=== PATIENT | female | born 1995 | race Caucasian/White ===

== ENCOUNTER 2018-05-28 15:46 | Emergency (ER) | payer OTHER ==
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
[2018-05-28 15:57] VITALS: BP 118/78; PULSE 98; TEMP 97.9; BMI 23.3
[2018-05-28] MEDS ORDERED: ACETAMINOPHEN 500 MG TABLET (FP) PO ONE (16:24)
[2018-05-28] MEDS ORDERED: ACETAMINOPHEN 500 MG TABLET (FP) ONE (16:26)
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
== END 2018-05-28 16:44 | disposition home or self-care (01) ==
LOC: JERFT 15:46
PROC: 2W39X1Z Immobilization of Left Upper Extremity using Splint (ICD-10-PCS; principal; 2018-05-28)
DX: S59.802A Other specified injuries of left elbow, initial encounter (principal); V43.52XA Car driver injured in collision with other type car in traffic accident, initial encounter; Y92.414 Local residential or business street as the place of occurrence of the external cause; Y93.89 Activity, other specified; Y99.8 Other external cause status
CPT/HCPCS: 73070-TC-LT-FY; 99282-25

== ENCOUNTER 2018-06-03 09:27 | Emergency (ER) | payer OTHER ==
[2018-06-03 09:41] VITALS: BP 117/74; PULSE 85; TEMP 97.5; BMI 23.3
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
== END 2018-06-03 11:15 | disposition home or self-care (01) ==
LOC: JERFT 09:27
PROC: 2W3DX1Z Immobilization of Left Lower Arm using Splint (ICD-10-PCS; principal; 2018-06-03)
DX: S63.502D Unspecified sprain of left wrist, subsequent encounter (principal); V49.9XXD Car occupant (driver) (passenger) injured in unspecified traffic accident, subsequent encounter
CPT/HCPCS: 73110-TC-LT-FY; 99281-25

== ENCOUNTER 2018-10-18 20:27 | Emergency (ER) | payer OTHER ==
[2018-10-18 20:34] VITALS: TEMP 98.4; BMI 25.3
--- NOTE | 2018-10-18 20:57 | PDOC ---
History of Present Illness - General Chief Complaint: Vaginal Bleeding Stated Complaint: 7 WKS /VAGINAL BLEEDING/LOWER ABD/CRAMPS Time Seen by Provider: 10/18/18 20:50 - History of Present Illness Initial Comments: 10/18/18 21:49 HPI: 23 y/o F with history of seasonal asthma and depression 6-7weeks gestation presenting with 1 week of lower abdominal cramping and 1 day of vaginal bleeding. She reports that cramping has been intermittent over the past week but it wasnt that painful and improved over time; denies any radiation of pain or requiring meds for alleviation. Today however, she started having light bleeding present when wiping. She denies any clots or heavy flow. She denies fever, chills, dysuria, hematuria, chest pain, SOB, LH, PRIEST, pelvic pain. She report intermittent nausea since onset of . PMHx: as noted above ROS: as noted SHx: Denies tobacco use; no alcohol use; no rec drugs Allergies: NKDA ROS: GENERAL/CONSTITUTIONAL: No fever or chills. No weakness. HEAD, EYES, EARS, NOSE AND THROAT: No change in vision. No ear pain or discharge. No sore throat. CARDIOVASCULAR: No chest pain or shortness of breath RESPIRATORY: No cough, wheezing, or hemoptysis. GASTROINTESTINAL: No vomiting, diarrhea GENITOURINARY: No dysuria, frequency, or change in urination. MUSCULOSKELETAL: No joint or muscle swelling or pain. No neck or back pain. SKIN: No rash NEUROLOGIC: No headache, vertigo, loss of consciousness, or change in strength/ sensation. ENDOCRINE: No increased thirst. No abnormal weight change HEMATOLOGIC/LYMPHATIC: No anemia, easy bleeding, or history of blood clots. ALLERGIC/IMMUNOLOGIC: No hives or skin allergy. PE: GENERAL: Awake, alert, and fully oriented, no acute distress HEAD: No signs of trauma, normocephalic, atraumatic EYES: EOMI, sclera anicteric, conjunctiva clear ENT: Auricles normal inspection, hearing grossly normal, nares patent, oropharynx clear without exudates. Moist mucosa NECK: Normal ROM, no lymphadenopathy LUNGS: No increased work of breathing, symmetrical chest rise, clear to auscultation bilaterally, no wheezes, crackles or rhonchi HEART: tachycardic and regular rhythm, normal S1 and S2, no murmurs, peripheral pulses 2+ and equal bilaterally. ABDOMEN: Soft, nondistended, nontender, normoactive bowel sounds. No guarding, no rebound. No masses EXTREMITIES: Normal inspection, Normal range of motion, no edema. No clubbing or cyanosis. NEUROLOGICAL: Cranial nerves II through XII grossly intact. Normal speech, normal gait, no focal sensorimotor deficits SKIN: Warm, Dry, normal turgor, no rashes or lesions noted Past History - Past Medical History Allergies/Adverse Reactions: Allergies Allergy/AdvReac Type Severity Reaction Status Date / Time No Known Allergies Allergy Verified 10/18/18 20:31 Home Medications: Ambulatory Orders 95/Iron Fum/Folic/Dha [ + Dha Combo Pack] 1 each PO DAILY 10/18 Sertraline HCl [Zoloft] 25 mg PO DAILY 10/18/18 Asthma: Yes COPD: No Psychiatric Problems: Yes - Immunization History Immunization Up to Date: Yes - Suicide/Smoking/Psychosocial Hx Smoking History: Never smoked Hx Alcohol Use: No Drug/Substance Use Hx: No *Physical Exam - Vital Signs Last Vital Signs Temp Pulse Resp BP Pulse Ox 98.4 F 105 H 18 120/73 99 10/18/18 20:32 10/18/18 20:32 10/18/18 20:32 10/18/18 20:32 10/18/18 20:32 ED Treatment Course - LABORATORY CBC & Chemistry Diagram: 10/18/18 21:41 Medical Decision Making - Medical Decision Making 10/18/18 22:31 23 y/o F with history of seasonal asthma and depression 6-7weeks gestation presenting with 1 week of lower abdominal cramping and 1 day of vaginal bleeding. HR 105. PE unremarkable. Concern for threatened -cbc, ua, t&s, hcg quant -TVUS -discussed with patient pelvic exam is part of assessment for open vs closed os and to identify source of bleeding as well as to assess for tenderness, however patient refused at this time since she has one 1.5weeks ago and would like only TVUS at this time 10/19/18 00:09 TVUS with FHR and with IUP at 6w1d (lmp 7w3d) discussed with patient results and she is comfortable with instructions to followup with Obgyn as soon as possible. Reviewed return pcxns; comfortable with DC *DC/Admit/Observation/Transfer Diagnosis at time of Disposition: Vaginal bleeding during Abdominal pain Qualifiers: Abdominal location: lower abdomen, unspecified Qualified Code(s): R10.30 - Lower abdominal pain, unspecified - Discharge Dispostion Disposition: HOME Condition at time of disposition: Stable Decision to Admit order: No - Referrals Referrals: Kalia Daniels [Primary Care Provider] - - Patient Instructions Printed Discharge Instructions: DI for Vaginal Bleeding During Additional Instructions: Additional Instructions: Please return to the emergency department with any new or worsening symptoms or concerns including severe abdominal pain, vomiting, not being able to tolerate food, significant vaginal bleeding, fainting. Please follow up with your ObGyn within 48-72 hours Continue care and vitamins - Post Discharge Activity
--- NOTE | 2018-10-18 21:47 | PDOC ---
Attending Attestation - Resident Resident Name: Ana Villa - HPI HPI: 10/18/18 21:48 Pt presents to the ED complaining of vaginal spotting for one day. Bleeding is minimal--streaks with wiping only. Also complains of very mild abdominal pain. Denies fever, nausea and vomiting or vaginal discharge. Denies urinary complaints. - Physicial Exam PE: 10/18/18 21:54 Agree with resident exam. Patient is alert and oriented and in no acute distress. Abdomen soft, non tender, non distended without guarding or rebound. - Medical Decision Making 10/18/18 21:57 Pt presents to the ED complaining of vaginal spotting. Threatened AB vs ectopic vs missed AB. Will check labs including bhcg and type and screen and transvaginal US. Will reassess.
[2018-10-18 21:56] LABS: BASO % 0.6 % (0-2.0); EOS % 1.4 % (0-4.5); HEMATOCRIT 38.1 % (32.4-45.2); HEMOGLOBIN 13.3 GM/dL (10.7-15.3); LYMPH % 29.6 % (8-40); MCH 29.3 pg (25.7-33.7); MCHC 34.9 g/dl (32.0-36.0); MEAN CELL VOLUME 83.9 fl (80-96); MONO % 5.8 % (3.8-10.2); NEUT % 62.6 % (42.8-82.8); PLATELET COUNT 269 K/MM3 (134-434); RBC 4.54 M/mm3 (3.60-5.2); RDW 13.6 % (11.6-15.6)
[2018-10-18 22:17] LABS: EPI CELLS 2.5 /HPF (0-5/HPF); HYALINE CASTS 1 /lpf (0-8); URINE APPEARANCE CLEAR; URINE BACTERIA 28.3 /hpf (NEGATIVE); URINE BILIRUBIN NEGATIVE (NEGATIVE); URINE COLOR YELLOW; URINE GLUCOSE (UA) NEGATIVE (NEGATIVE); URINE KETONE NEGATIVE (NEGATIVE); URINE LEUK ESTERASE TRACE (NEGATIVE); URINE NITRITE NEGATIVE (NEGATIVE); URINE PROTEIN NEGATIVE (NEGATIVE); URINE RBC 2 /hpf (0-4); URINE UROBILINOGEN 0.2 mg/dL (0.2-1.0); URINE WBC 2 /hpf (0-5)
[2018-10-19 00:18] VITALS: BP 123/68; PULSE 86
== END 2018-10-19 00:18 | disposition home or self-care (01) ==
LOC: JER 20:27
DX: O26.891 Other specified pregnancy related conditions, first trimester (principal); O20.8 Other hemorrhage in early pregnancy; Z3A.01 Less than 8 weeks gestation of pregnancy; Z87.09 Personal history of other diseases of the respiratory system
CPT/HCPCS: 36415; 76817-TC; 81003; 84702; 85025; 86850; 86900; 86901; 99283-25

== ENCOUNTER 2018-11-16 09:45 | Emergency (ER) | payer OTHER ==
[2018-11-16 09:52] VITALS: BP 106/60; PULSE 90; TEMP 98; BMI 24.7
[2018-11-16] MEDS ORDERED: SODIUM CHLORIDE 1,000 ML IV STA (10:19)
[2018-11-16] MEDS ORDERED: METOCLOPRAMIDE HCL INJECTION 10 MG/2 ML VIAL IVPUSH ONE (10:19)
[2018-11-16] MEDS ORDERED: FAMOTIDINE 20 MG/50 ML IVPB 20 MG/50 ML MG IVPB ONE ×2 (10:19→10:30)
[2018-11-16] MEDS ORDERED: METOCLOPRAMIDE HCL INJECTION 10 MG/2 ML VIAL ONE (10:30)
--- NOTE | 2018-11-16 10:41 | PDOC ---
History of Present Illness - General History Source: Patient Exam Limitations: No Limitations - History of Present Illness Initial Comments: 11/16/18 10:23 23 yo F 9 weeks comes in with significant other comes in c/o epigastric and suprapubic abdominal pain for the past week. She also c/o intractable vomiting and nausea, she has not been able to keep anything down, solids or liquids. She has told her OB who prescribed her reglan but it was not helping so she stopped taking it last week. Also c/o intermittent diffuse pounding headache, which started again last night at around 7pm. It started as a mild headache and progressively got worse. It is now a 7/10. No vaginal bleeding. No burning/pain on urination, no frequency/urgency on urination. Pt has had a documented IUP in this , has a OB, but has not been able to take her prenatals recently because she cant keep anything down [id number] LMP August 27. 11/16/18 10:46 11/16/18 10:54 <Hazel Koo - Last Filed: 11/16/18 11:33> <Himanshu Martinez - Last Filed: 11/17/18 11:54> - General Chief Complaint: ,Possible Stated Complaint: 9WKS/ ABD. PAIN Time Seen by Provider: 11/16/18 10:00 Past History - Past Medical History Asthma: Yes COPD: No Psychiatric Problems: Yes - Immunization History Immunization Up to Date: Yes - Psycho Social/Smoking Cessation Hx Smoking History: Never smoked Have you smoked in the past 12 months: No Information on smoking cessation initiated: No Hx Alcohol Use: No Drug/Substance Use Hx: No <Hazel Koo - Last Filed: 11/16/18 11:33> <Himanshu Martinez - Last Filed: 11/17/18 11:54> - Past Medical History Allergies/Adverse Reactions: Allergies Allergy/AdvReac Type Severity Reaction Status Date / Time No Known Allergies Allergy Verified 10/18/18 20:31 Home Medications: Ambulatory Orders 95/Iron Fum/Folic/Dha [ + Dha Combo Pack] 1 each PO DAILY 10/18 Sertraline HCl [Zoloft] 25 mg PO DAILY 10/18/18 Famotidine [Pepcid] 20 mg PO DAILY 10 Days #10 tablet 11/16/18 Review of Systems - Review of Systems Able to Perform ROS?: Yes Constitutional: No: Chills, Fever, Malaise, Night Sweats HEENTM: No: Eye Pain, Recent change in vision, Throat Pain Respiratory: No: Cough, Shortness of Breath Cardiac (ROS): No: Chest Pain, Palpitations, Chest Tightness ABD/GI: Yes: Nausea, Vomiting, Abdominal cramping. No: Diarrhea : No: Dysuria, Hematuria Musculoskeletal: No: Back Pain Integumentary: No: Rash Neurological: Yes: Headache. No: Numbness, Dizziness Psychiatric: No: Change in Appetite Endocrine: No: Unexplained Weight Loss <Hazel Koo - Last Filed: 11/16/18 11:33> *Physical Exam - Vital Signs Last Vital Signs Temp Pulse Resp BP Pulse Ox 98.0 F 90 18 106/60 100 11/16/18 09:49 11/16/18 09:49 11/16/18 09:49 11/16/18 09:49 11/16/18 09:49 - Physical Exam General Appearance: Yes: Nourished. No: Apparent Distress HEENT: positive: PAPA, Normal ENT Inspection, Normal Voice, Other (dry mucous membranes). negative: Pale Conjunctivae, Scleral Icterus (R), Scleral Icterus ( L) Neck: positive: Supple. negative: Decreased range of motion, Tender midline Respiratory/Chest: positive: Lungs Clear, Normal Breath Sounds. negative: Respiratory Distress, Accessory Muscle Use Cardiovascular: positive: Regular Rhythm, Regular Rate Gastrointestinal/Abdominal: positive: Normal Bowel Sounds, Tender (minimal epigastric and suprapubic tenderness), Soft. negative: Guarding, Rebound Musculoskeletal: positive: Normal Inspection. negative: CVA Tenderness, Decreased Range of Motion Extremity: positive: Normal Capillary Refill, Normal Inspection, Normal Range of Motion. negative: Tender, Pedal Edema Integumentary: positive: Normal Color, Dry. negative: Jaundice, Rash Neurologic: positive: Fully Oriented, Alert, Normal Mood/Affect <Hazel Koo - Last Filed: 11/16/18 11:33> - Vital Signs Last Vital Signs Temp Pulse Resp BP Pulse Ox 98.0 F 90 18 106/60 100 11/16/18 09:49 11/16/18 09:49 11/16/18 09:49 11/16/18 09:49 11/16/18 09:49 <Himanshu Martinez - Last Filed: 11/17/18 11:54> ED Treatment Course - LABORATORY CBC & Chemistry Diagram: 11/16/18 10:28 11/16/18 10:28 - RADIOLOGY Radiology Studies Ordered: Category Date Time Status TRANSVAGINAL US PREG [US] Stat Ultrasound 11/16/18 10:10 Ordered <Hazel Koo - Last Filed: 11/16/18 11:33> - LABORATORY CBC & Chemistry Diagram: 11/16/18 10:28 11/16/18 10:28 - ADDITIONAL ORDERS Additional order review: 11/16/18 10:28 Urine Culture - Final Urine - Urine Clean Catch NO GROWTH OBTAINED 11/16/18 10:28 RBC 4.61 MCV 84.9 MCHC 34.8 RDW 13.6 MPV 7.5 Neutrophils % 73.7 Lymphocytes % 20.1 D Monocytes % 5.2 Eosinophils % 0.7 Basophils % 0.3 - Medications Given in the ED: ED Medications Discontinued Medications Generic Name Dose Route Start Last Admin Trade Name Deltaq PRN Reason Stop Dose Admin Diphenhydramine HCl 25 mg 11/16/18 10:19 11/16/18 10:54 Benadryl Injection - IVPUSH 11/16/18 10:20 25 mg ONCE ONE Administration Famotidine/Sodium Chloride 20 mg in 50 mls @ 100 mls/hr 11/16/18 10:19 10:54 Pepcid 20 Mg Premixed Ivpb - IVPB 11/16/18 10:48 100 mls/hr ONCE ONE Administration Sodium Chloride 1,000 mls @ 1,000 mls/hr 11/16/18 10:19 11/16/18 10:54 Normal Saline - IV 11/16/18 11:18 1,000 mls/hr ASDIR STA Administration Metoclopramide HCl 10 mg 11/16/18 10:19 11/16/18 10:55 Reglan Injection - IVPUSH 11/16/18 10:20 10 mg ONCE ONE Administration <Himanshu Martinez - Last Filed: 11/17/18 11:54> Medical Decision Making - Medical Decision Making 11/16/18 10:56 23 yo F w/ vomiting in early . Also w/ mild abdominal pain, headache. Likely dehydration. No vaginal bleeding. Will line and lab, give pepcid, reglan, benadryl, IV fluids. WIll do a TVS. 11/16/18 11:33 Pt feels a lot better UA reviewed. 2 WBCs, will wait for urine culture. Pt is asking to get discharged, she says that she feels a lot better, no nausea , no abdominal pain. She refuses PO challenge, says that she just wants to go home, she will follow up with her OB. She says that reglan conley snot work for her. I told her t make sure she follows up with her OB return for worsening/concerning symptoms <Hazel Koo - Last Filed: 11/16/18 11:33> - Medical Decision Making The patient was seen and evaluated in conjunction with GELACIO Koo under my direct supervision, ancillary studies were reviewed. I independently interviewed and evaluated the patient and I agree with the plan as outlined by GELACIO Koo <Himanshu Martinez - Last Filed: 11/17/18 11:54> Discharge - Discharge Information Problems reviewed: Yes <Hazel Koo - Last Filed: 11/16/18 11:33> <Himanshu Martinez - Last Filed: 11/17/18 11:54> - Discharge Information Clinical Impression/Diagnosis: Vomiting , Vaginal bleeding during Abdominal pain Qualifiers: Abdominal location: unspecified location Qualified Code(s): R10.9 - Unspecified abdominal pain Condition: Stable Disposition: HOME - Additional Discharge Information Prescriptions: Famotidine [Pepcid] 20 mg PO DAILY 10 Days #10 tablet - Follow up/Referral Referrals: Marika Ding MD [Primary Care Provider] - - Patient Discharge Instructions Patient Printed Discharge Instructions: DI for Hyperemesis Gravidarum Additional Instructions: Please make a follow up appointment with your OB. Please make sure to drink lots of fluids, hydrate slowly. Return for worsening/concerning symptoms
[2018-11-16 10:51] LABS: BASO % 0.3 % (0-2.0); EOS % 0.7 % (0-4.5); HEMATOCRIT 39.2 % (32.4-45.2); HEMOGLOBIN 13.6 GM/dL (10.7-15.3); LYMPH % 20.1 % (8-40); MCH 29.5 pg (25.7-33.7); MCHC 34.8 g/dl (32.0-36.0); MEAN CELL VOLUME 84.9 fl (80-96); MEAN PLT VOLUME 7.5 fl (7.5-11.1); MONO % 5.2 % (3.8-10.2); NEUT % 73.7 % (42.8-82.8); PLATELET COUNT 271 K/MM3 (134-434); RBC 4.61 M/mm3 (3.60-5.2); RDW 13.6 % (11.6-15.6); WHITE BLOOD COUNT 10.3 K/mm3 (4.0-10.0)
[2018-11-16 10:54] LABS: EPI CELLS 3.2 /HPF (0-5/HPF); HYALINE CASTS 4 /lpf (0-8); URINE APPEARANCE CLEAR; URINE BACTERIA 12.2 /hpf (NEGATIVE); URINE BILIRUBIN NEGATIVE (NEGATIVE); URINE COLOR YELLOW; URINE GLUCOSE (UA) NEGATIVE (NEGATIVE); URINE KETONE NEGATIVE (NEGATIVE); URINE LEUK ESTERASE TRACE (NEGATIVE); URINE NITRITE NEGATIVE (NEGATIVE); URINE PROTEIN NEGATIVE (NEGATIVE); URINE RBC 3 /hpf (0-4); URINE WBC 2 /hpf (0-5)
[2018-11-16 11:08] LABS: ALBUMIN 3.7 g/dl (3.4-5.0); BILIRUBIN,TOTAL 0.5 mg/dL (0.2-1); BLOOD UREA NITROGEN 7.1 mg/dL (7-18); CALCIUM 9.5 mg/dL (8.5-10.1); CREATININE 0.5 mg/dL (0.55-1.3); PHOSPHOROUS 3.3 mg/dL (2.5-4.9); POTASSIUM 3.9 mmol/L (3.5-5.1); TOT PROT 7.9 g/dl (6.4-8.2)
== END 2018-11-16 12:19 | disposition home or self-care (01) ==
LOC: JER 09:45
PROC: 3E033GC Introduction of Other Therapeutic Substance into Peripheral Vein, Percutaneous Approach (ICD-10-PCS; principal; 2018-11-16)
PROC: 3E033GC Introduction of Other Therapeutic Substance into Peripheral Vein, Percutaneous Approach (ICD-10-PCS; 2018-11-16)
PROC: 3E033GC Introduction of Other Therapeutic Substance into Peripheral Vein, Percutaneous Approach (ICD-10-PCS; 2018-11-16)
DX: O26.891 Other specified pregnancy related conditions, first trimester (principal); O21.0 Mild hyperemesis gravidarum; Z3A.09 9 weeks gestation of pregnancy; Z87.09 Personal history of other diseases of the respiratory system; Z86.59 Personal history of other mental and behavioral disorders
CPT/HCPCS: 36415; 76810-TC; 80053; 81003; 83690; 83735; 84100; 84702; 85025; 87086; 96365; 96375; 99283-25; J7030

== ENCOUNTER 2019-05-12 02:30 | Inpatient (IN) | payer OTHER ==
[2019-05-12 03:20] VITALS: BMI 27.1
[2019-05-12 03:21] LABS: BASO % 0.6 % (0-2.0); EOS % 0.8 % (0-4.5); HEMATOCRIT 29.5 % (32.4-45.2); HEMOGLOBIN 9.3 GM/dL (10.7-15.3); LYMPH % 27.7 % (8-40); MCH 21.4 pg (25.7-33.7); MCHC 31.4 g/dl (32.0-36.0); MEAN CELL VOLUME 68.2 fl (80-96); MEAN PLT VOLUME 9.2 fl (7.5-11.1); MONO % 5.8 % (3.8-10.2); NEUT % 65.1 % (42.8-82.8); PLATELET COUNT 248 K/MM3 (134-434); RBC 4.32 M/mm3 (3.60-5.2); RDW 18.2 % (11.6-15.6); WHITE BLOOD COUNT 12.2 K/mm3 (4.0-10.0)
[2019-05-12 03:29] LABS: INR 0.88 (0.83-1.09); PROTHROMBIN TIME (PATIENT) 10.4 SEC (9.7-13.0)
[2019-05-12 03:42] LABS: BLOOD UREA NITROGEN 6.6 mg/dL (7-18); CALCIUM 8.1 mg/dL (8.5-10.1); CREATININE 0.5 mg/dL (0.55-1.3); POTASSIUM 3.7 mmol/L (3.5-5.1)
[2019-05-12] MEDS ORDERED: AMPICILLIN SODIUM 2 GM VIAL ONE (03:53)
[2019-05-12] MEDS ORDERED: AMPICILLIN - 2 GM in SODIUM CHLORIDE 100 ML IVPB ONE (04:21)
[2019-05-12] MEDS ORDERED: CITRIC ACID/SODIUM CITRATE 30 ML UNIT-DOSE CUP PO ONE ×2 (04:22→04:23)
[2019-05-12] MEDS ORDERED: OXYTOCIN 20 UNITS in 0.9% NS 20 UNIT/1,000 ML INFUS.BAG IV ONE (04:28)
[2019-05-12 04:34] LABS: HIV INTERPRETATION NEGATIVE (NEGATIVE)
[2019-05-12] MEDS ORDERED: METHYLERGONOVINE MALEATE 0.2 MG/1 ML AMP IM PRN (05:47)
[2019-05-12] MEDS ORDERED: ACETAMINOPHEN 1000 MG/100 ML VIAL (NON FORMULARY) IVPB PRN (05:54)
[2019-05-12] MEDS ORDERED: OXYTOCIN 20 UNITS in 0.9% NS 1000 ML INFUS.BAG IV ONE (05:55)
[2019-05-12] MEDS ORDERED: ELECTROLYTE-148 SOLN 1,000 ML IV SCH (06:00)
[2019-05-12] MEDS ORDERED: OXYTOCIN 20 UNITS in 0.9% NS 20 UNIT/1,000 ML INFUS.BAG IV SCH (06:00)
[2019-05-12 08:33] LABS: POC NITRAZINE POS
[2019-05-12] MEDS ORDERED: IBUPROFEN 800 MG/8 ML IJ IVPB ONE (09:01)
[2019-05-12] MEDS ORDERED: IBUPROFEN 800 MG/8 ML IJ IVPB PRN (09:22)
[2019-05-12] MEDS ORDERED: CEFAZOLIN 1 GM in DEXTROSE 5%-WATER - 50 ML IVPB SCH (10:00)
[2019-05-12] MEDS ORDERED: SERTRALINE HCL 25 MG TABLET (FP) PO SCH (10:00)
[2019-05-12] MEDS ORDERED: ceFAZolin SODIUM 1 GM VIAL ONE (10:36)
[2019-05-12] MEDS: ENOXAPARIN NA (PORCINE) 30 MG/0.3 ML DISP.SYRIN SQ SCH (11:42)
[2019-05-12] MEDS: CEFAZOLIN 1 GM/D5W 1 GM/50 ML BAG IVPB SCH (17:26)
[2019-05-12] MEDS: IBUPROFEN 600 MG TABLET (FP) PO PRN (17:26)
[2019-05-13] MEDS: IBUPROFEN 600 MG TABLET (FP) PO PRN ×5 (01:55→22:05)
[2019-05-13] MEDS: oxyCODONE HCL 5 MG TABLET PO PRN ×5 (01:59→23:36)
[2019-05-13] MEDS: SIMETHICONE 80 MG TAB.CHEW (FP) PO PRN ×4 (02:00→17:53)
[2019-05-13] MEDS: CEFAZOLIN 1 GM/D5W 1 GM/50 ML BAG IVPB SCH (02:06)
[2019-05-13] MEDS ORDERED: BISACODYL 10 MG SUPP.RECT RC PRN (05:47)
[2019-05-13 09:46] LABS: BASO % 0.3 % (0-2.0); EOS % 0.3 % (0-4.5); HEMATOCRIT 27.2 % (32.4-45.2); HEMOGLOBIN 8.6 GM/dL (10.7-15.3); LYMPH % 16.5 % (8-40); MCH 21.6 pg (25.7-33.7); MCHC 31.6 g/dl (32.0-36.0); MEAN CELL VOLUME 68.2 fl (80-96); MEAN PLT VOLUME 8.3 fl (7.5-11.1); MONO % 6.8 % (3.8-10.2); NEUT % 76.1 % (42.8-82.8); PLATELET COUNT 205 K/MM3 (134-434); RBC 3.99 M/mm3 (3.60-5.2); RDW 18.5 % (11.6-15.6); WHITE BLOOD COUNT 10.7 K/mm3 (4.0-10.0)
[2019-05-13] MEDS: ENOXAPARIN NA (PORCINE) 30 MG/0.3 ML DISP.SYRIN SQ SCH (10:56)
[2019-05-13] MEDS ORDERED: SENNOSIDES/DOCUSATE COMBO (SENNA PLUS) TABLET (UD) PO PRN ×2 (19:42→20:17)
[2019-05-14] MEDS: IBUPROFEN 600 MG TABLET (FP) PO PRN (02:28)
[2019-05-14] MEDS: oxyCODONE HCL 5 MG TABLET PO PRN (08:22)
[2019-05-14 09:22] VITALS: BP 131/86; PULSE 84; TEMP 98.1
[2019-05-14] MEDS: ENOXAPARIN NA (PORCINE) 30 MG/0.3 ML DISP.SYRIN SQ SCH (09:36)
== END 2019-05-14 10:35 | disposition home or self-care (01) | DRG 540 ==
LOC: JLDR 02:30 → J3W 13:12
PROVIDERS: ADMIT Specialist; ATTEND Specialist
PROC: 10D00Z1 Extraction of Products of Conception, Low, Open Approach (ICD-10-PCS; principal; 2019-05-12)
DX: O42.013 Preterm premature rupture of membranes, onset of labor within 24 hours of rupture, third trimester (principal); O30.043 Twin pregnancy, dichorionic/diamniotic, third trimester; Z3A.34 34 weeks gestation of pregnancy; Z37.2 Twins, both liveborn; O99.013 Anemia complicating pregnancy, third trimester; D64.9 Anemia, unspecified
CPT/HCPCS: 36415; 80048; 83986-QW; 85025; 85610; 85730; 86780; 86850; 86900; 86901; 87389; 88307-TC; J0131

== ENCOUNTER 2020-03-05 04:37 | Day surgery (SDC) | payer OTHER ==
[2020-03-04 11:28] VITALS: BMI 23.9
[2020-03-05] MEDS ORDERED: PROPOFOL 20 ML ONE (08:25)
[2020-03-05] MEDS ORDERED: SODIUM CHLORIDE 0.9% P/F 10 ML VIAL IJ ONE ×3 (08:25→10:34)
[2020-03-05] MEDS ORDERED: LABETALOL HCL 5 MG/1 ML (100MG/20 ML VIAL) ONE (08:25)
[2020-03-05] MEDS ORDERED: ROCURONIUM BROMIDE 50 MG/5 ML SYRINGE ONE (08:25)
[2020-03-05] MEDS ORDERED: ceFAZolin SODIUM 1 GM VIAL ONE ×2 (08:25→10:00)
[2020-03-05] MEDS ORDERED: fentaNYL CITRATE 250 MCG/5 ML VIAL ONE (09:57)
[2020-03-05] MEDS ORDERED: MIDAZOLAM HCL 2 MG/2 ML SINGLE DOSE VIAL ONE (09:57)
[2020-03-05] MEDS ORDERED: DEXAMETHASONE SOD PHOSPHATE 4 MG/1 ML VIAL ONE (10:00)
[2020-03-05] MEDS ORDERED: KETOROLAC TROMETHAMINE 30 MG/1 ML VIAL ONE (10:00)
[2020-03-05] MEDS ORDERED: LIDOCAINE HCL 2% JELLY (5 ML/TUBE) ONE (10:00)
[2020-03-05] MEDS ORDERED: LIDOCAINE HCL 2% JELLY 10 ML CARTRIDGE ONE (10:22)
[2020-03-05] MEDS ORDERED: ceFAZolin SODIUM 1 GM VIAL IVPB ONE (10:31)
[2020-03-05] MEDS ORDERED: BUPIVACAINE HCL/PF 0.5% (5MG/ML) 10 ML VIAL IJ ONE (10:40)
[2020-03-05] MEDS ORDERED: oxyCODONE HCL 5 MG TABLET PO PRN (10:56)
[2020-03-05] MEDS ORDERED: PROMETHAZINE HCL 25 MG/1 ML VIAL IVPUSH PRN (10:56)
[2020-03-05] MEDS ORDERED: ONDANSETRON 4 MG/2 ML VIAL IVPUSH PRN (10:56)
[2020-03-05] MEDS ORDERED: LACTATED RINGERS SOLUTION 1,000 ML IV SCH (11:00)
[2020-03-05 13:59] VITALS: BP 104/54; PULSE 75; TEMP 97.1
== END 2020-03-05 14:10 | disposition home or self-care (01) ==
LOC: JASU-SURG 04:37
PROVIDERS: ATTEND Surgery
PROC: 0WQF0ZZ Repair Abdominal Wall, Open Approach (ICD-10-PCS; principal; 2020-03-05 10:00)
DX: K43.6 Other and unspecified ventral hernia with obstruction, without gangrene (principal)
CPT/HCPCS: 81025; 88302-TC; 94760

== ENCOUNTER 2021-02-11 04:35 | Day surgery (SDC) | payer OTHER ==
[2021-02-08 14:58] VITALS: BMI 25.7
[2021-02-11] MEDS ORDERED: BUPIVACAINE HCL/PF 0.5% (5MG/ML) 10 ML VIAL ONE (12:16)
[2021-02-11] MEDS ORDERED: LIDOCAINE 1%/EPI 1:100000 (20 ML MULTI DOSE VIAL) ONE (12:16)
[2021-02-11] MEDS ORDERED: LIDOCAINE HCL 1%, 10 MG/ML (20ML VIAL) ONE (12:16)
[2021-02-11] MEDS ORDERED: PROPOFOL 20 ML ONE ×2 (13:07→13:23)
[2021-02-11] MEDS ORDERED: MIDAZOLAM HCL 2 MG/2 ML SINGLE DOSE VIAL ONE ×2 (13:08→13:23)
[2021-02-11] MEDS ORDERED: BUPIVACAINE HCL/PF 0.5% (5MG/ML) 10 ML VIAL NR ONE (13:49)
[2021-02-11] MEDS ORDERED: oxyCODONE HCL 5 MG TABLET PO PRN ×2 (14:31)
[2021-02-11] MEDS ORDERED: ONDANSETRON 4 MG/2 ML VIAL IVPUSH PRN (14:31)
[2021-02-11] MEDS ORDERED: ACETAMINOPHEN 1000 MG/100 ML BAG IVPB PRN (14:32)
[2021-02-11] MEDS ORDERED: LACTATED RINGERS SOLUTION 1,000 ML IV SCH (14:45)
[2021-02-11] MEDS ORDERED: ONDANSETRON 4 MG/2 ML VIAL ONE (17:09)
[2021-02-11 17:48] VITALS: BP 104/54; PULSE 72; TEMP 97.7
== END 2021-02-11 18:24 | disposition home or self-care (01) ==
LOC: JASU-SURG 04:35
PROVIDERS: ATTEND Surgery
PROC: 0JB80ZZ Excision of Abdomen Subcutaneous Tissue and Fascia, Open Approach (ICD-10-PCS; principal; 2021-02-11 13:00)
DX: N80.3 Endometriosis of pelvic peritoneum (principal)
CPT/HCPCS: 81025; 88307-TC; 94760; J0131

== ENCOUNTER 2022-09-19 17:38 | Observation (INO) | payer OTHER ==
[2022-09-19] MEDS ORDERED: ACETAMINOPHEN 325 MG TABLET (FP) PO ONE (18:27)
[2022-09-19] MEDS ORDERED: METOCLOPRAMIDE HCL INJECTION 10 MG/2 ML VIAL IVPUSH ONE (18:27)
[2022-09-19] MEDS ORDERED: ACETAMINOPHEN 325 MG TABLET (FP) ONE (19:14)
[2022-09-19] MEDS ORDERED: METOCLOPRAMIDE HCL INJECTION 10 MG/2 ML VIAL ONE (19:14)
[2022-09-19 19:40] LABS: BASO % 0.6 % (0-2.0); EOS % 2.2 % (0-4.5); HEMATOCRIT 39.3 % (32.4-45.2); HEMOGLOBIN 13.5 GM/dL (10.7-15.3); LYMPH % 28.5 % (8-40); MCH 27.9 pg (25.7-33.7); MCHC 34.5 g/dl (32.0-36.0); MEAN PLT VOLUME 7.4 fl (7.5-11.1); MONO % 5.5 % (3.8-10.2); NEUT % 63.2 % (42.8-82.8); PLATELET COUNT 316 10^3/uL (134-434); RBC 4.85 M/mm3 (3.60-5.2); RDW 13.5 % (11.6-15.6); WHITE BLOOD COUNT 10.7 K/mm3 (4.0-10.0)
[2022-09-19 19:47] LABS: INR 1.03 (0.83-1.09); PROTHROMBIN TIME (PATIENT) 11.9 SEC (9.7-13.0)
[2022-09-19 19:50] LABS: ACTIVATED PTT 30.7 SECONDS (25.2-36.5)
[2022-09-19 19:53] LABS: POTASSIUM 3.9 mmol/L (3.5-5.1)
[2022-09-19 19:55] LABS: CALCIUM 8.9 mg/dL (8.5-10.1)
[2022-09-19 19:56] LABS: ALBUMIN 3.6 g/dl (3.4-5.0)
[2022-09-19 19:57] LABS: BLOOD UREA NITROGEN 9.5 mg/dL (7-18)
[2022-09-19 19:59] LABS: CREATININE 0.7 mg/dL (0.55-1.3)
[2022-09-19 20:01] LABS: TOT PROT 7.5 g/dl (6.4-8.2)
[2022-09-19 20:02] LABS: BILIRUBIN,TOTAL 0.2 mg/dL (0.2-1)
[2022-09-19] MEDS: SODIUM CHLORIDE 1,000 ML IV SCH (20:04)
[2022-09-19] MEDS ORDERED: LORazepam 2 MG/ML SDV VIAL IVPUSH ONE (22:42)
[2022-09-20] MEDS: SODIUM CHLORIDE 1,000 ML IV SCH (04:59)
[2022-09-20 05:55] VITALS: BMI 29.2
[2022-09-20] MEDS ORDERED: ACETAMINOPHEN 325 MG TABLET (FP) PO PRN (06:46)
[2022-09-20 10:28] LABS: BASO % 0.9 % (0-2.0); EOS % 3.8 % (0-4.5); HEMATOCRIT 38.5 % (32.4-45.2); HEMOGLOBIN 12.6 GM/dL (10.7-15.3); LYMPH % 31.7 % (8-40); MCH 27.4 pg (25.7-33.7); MCHC 32.8 g/dl (32.0-36.0); MEAN CELL VOLUME 83.5 fl (80-96); MEAN PLT VOLUME 8.1 fl (7.5-11.1); NEUT % 57.6 % (42.8-82.8); PLATELET COUNT 256 10^3/uL (134-434); RBC 4.62 M/mm3 (3.60-5.2); RDW 13.4 % (11.6-15.6); WHITE BLOOD COUNT 7.5 K/mm3 (4.0-10.0)
[2022-09-20 10:46] LABS: CALCIUM 8.5 mg/dL (8.5-10.1); POTASSIUM 3.9 mmol/L (3.5-5.1)
[2022-09-20 10:47] LABS: BLOOD UREA NITROGEN 7.9 mg/dL (7-18)
[2022-09-20 10:48] LABS: MAGNESIUM 1.9 mg/dL (1.8-2.4)
[2022-09-20 10:51] LABS: CREATININE 0.5 mg/dL (0.55-1.3)
[2022-09-20 10:53] LABS: BILIRUBIN,TOTAL 0.4 mg/dL (0.2-1); TOT PROT 6.7 g/dl (6.4-8.2)
[2022-09-20 11:40] LABS: EPI CELLS 27 /uL (0-25.1); HYALINE CASTS 8 /uL (0-3.1); URINE APPEARANCE CLEAR; URINE BACTERIA 304 /uL (0-1359); URINE BILIRUBIN NEGATIVE (NEGATIVE); URINE COLOR YELLOW; URINE GLUCOSE (UA) NEGATIVE (NEGATIVE); URINE KETONE NEGATIVE (NEGATIVE); URINE LEUK ESTERASE 2+ (NEGATIVE); URINE NITRITE NEGATIVE (NEGATIVE); URINE PROTEIN NEGATIVE (NEGATIVE); URINE WBC 240 /uL (0-25.8)
[2022-09-20 11:44] LABS: URINE RBC 110 /uL (0-23.9)
[2022-09-20 13:20] LABS: ERYTHROCYTE SEDIMENTATION RATE 28 mm/hr (0-20)
[2022-09-20] MEDS: ASPIRIN COATED 81 MG TABLET.EC PO SCH (16:46)
[2022-09-20] MEDS: DOXYCYCLINE INJECTION 100 MG in DEXTROSE 5%-WATER 100 ML IVPB SCH (21:46)
[2022-09-20] MEDS ORDERED: ATORVASTATIN CA 40 MG TABLET (FP) PO SCH (22:00)
[2022-09-20] MEDS ORDERED: MELATONIN 5 MG TABLETS PO PRN (23:12)
[2022-09-21 05:51] VITALS: TEMP 98.1
[2022-09-21] MEDS: ASPIRIN COATED 81 MG TABLET.EC PO SCH (09:27)
[2022-09-21] MEDS: DOXYCYCLINE INJECTION 100 MG in DEXTROSE 5%-WATER 100 ML IVPB SCH (09:27)
[2022-09-21 14:50] VITALS: BP 110/69; PULSE 71; RESP 18
[2022-09-21] MEDS ORDERED: SERTRALINE HCL 50 MG TABLET (FP) PO SCH (22:00)
== END 2022-09-21 18:53 | disposition home or self-care (01) ==
LOC: JER 17:38 → JERBED 21:08 → J8W 09-20 04:36 → J4S 09-20 14:52
PROVIDERS: ADMIT Internal Medicine; ATTEND Family Medicine
PROC: 3E033GC Introduction of Other Therapeutic Substance into Peripheral Vein, Percutaneous Approach (ICD-10-PCS; principal; 2022-09-19)
PROC: 3E03329 Introduction of Other Anti-infective into Peripheral Vein, Percutaneous Approach (ICD-10-PCS; 2022-09-19)
PROC: 3E0337Z Introduction of Electrolytic and Water Balance Substance into Peripheral Vein, Percutaneous Approach (ICD-10-PCS; 2022-09-19)
DX: G83.21 Monoplegia of upper limb affecting right dominant side (principal); D64.9 Anemia, unspecified; N80.9 Endometriosis, unspecified; G45.9 Transient cerebral ischemic attack, unspecified; F32.9 Major depressive disorder, single episode, unspecified
CPT/HCPCS: 36415; 70450-TC; 70551-TC; 80053; 80061; 81003; 82550; 82962; 83036; 83735; 84443; 84484; 84703; 85025; 85610; 85651; 85730; 86140; 87207; 93005; 93010; 96365; 96375; 97116-GP; 97161-GP; 99285-25; G0378